=== PATIENT | female | born 1995 | race Hispanic/Latino ===

== ENCOUNTER 2018-08-29 00:53 | Emergency (ER) | payer OTHER ==
[2018-08-29 01:16] LABS: APPEARANCE,URINE Cloudy (CLEAR); BILIRUBIN,URINE Negative (NEGATIVE); COLOR,URINE Yellow (YELLOW); GLUCOSE, URINE (UA) Negative (NEGATIVE); KETONES,URINE Trace mg/dL (NEGATIVE); LEUKOCYTE ESTERASE ,URINE Moderate (NEGATIVE); NITRATE,URINE Negative (NEGATIVE); OCCULT BLOOD,URINE Negative (NEGATIVE); PROTEIN,URINE Negative (NEGATIVE); UROBILINOGEN,URINE 0.2 mg/dL (0.2-1.0)
[2018-08-29 01:18] LABS: HCG,QUAL RESULT NEGATIVE (NEGATIVE)
[2018-08-29 01:29] LABS: BACTERIA,URINE Few /HPF (None Seen); RBC,URINE 0-1 /HPF (0-1); SQUAMOUS EPITHELIAL CELL,UR Moderate /HPF (0-2)
[2018-08-29] MEDS ORDERED: CEFTRIAXONE SODIUM 500 MG VIAL ONE (01:32)
[2018-08-29] MEDS ORDERED: LIDOCAINE HCL-MPF 1% 2ML VIAL ONE (01:33)
[2018-08-29] MEDS ORDERED: AZITHROMYCIN 250 MG TABLET PO ONE (01:33)
[2018-08-29] MEDS ORDERED: LEVOFLOXACIN 500 MG TABLET ONE (02:07)
== END 2018-08-29 02:19 | disposition home or self-care (01) ==
LOC: EDH 00:53
DX: N39.0 Urinary tract infection, site not specified (principal); N77.1 Vaginitis, vulvitis and vulvovaginitis in diseases classified elsewhere
CPT/HCPCS: 81001; 81025; 87088; 87210; 87486; 87797; 96372; 99283; J0696; J3490